=== PATIENT | female | born 1990 | race Caucasian/White ===

== ENCOUNTER 2017-02-28 17:20 | Emergency (ER) | payer OTHER ==
[~2017-02-28] VITALS: Ht 165.1 cm; Wt 150.0 kg
[2017-02-28 17:29] VITALS: BP 132/82; PULSE 113; RESP 16; TEMP 98.3; O2SAT 97
[2017-02-28] MEDS ORDERED: birth control PO (18:26)
[2017-02-28] MEDS ORDERED: TRIL600T PO (18:26)
[2017-02-28] MEDS ORDERED: PROT40TA PO (18:26)
[2017-02-28] MEDS ORDERED: VIST50CA PO (18:26)
[2017-02-28] MEDS ORDERED: CLON1 PO (18:26)
[2017-02-28] MEDS ORDERED: PRAZ2CAP PO (18:26)
[2017-02-28] MEDS ORDERED: TRAZ50TA12 PO (18:26)
[2017-02-28] MEDS ORDERED: PENI500T PO (18:47)
--- NOTE | 2017-02-28 18:47 | PD ---
HPI Chief Complaint: Anxiety Time Seen by Provider: 17:50 Travel History International Travel<30 days: No Contact w/Intl Traveler<30days: No Traveled to known affect area: No History of Present Illness HPI The patient was seen and examined in the presence of the nurse. At no point in time was I and the room without the nurse present. This patient comes to the emergency room with her mother. She has history of PTSD and anxiety. It's fairly challenging to actually elicited even a chief complaint. When I asked the patient a few questions she just ignores me. I asked her mother why she is here and she said she thought she needed a psychiatric evaluation. She is not suicidal. She denies auditory or visual hallucination. She reports compliance with her medications. She does have a medical history of frequent UTIs and would like her urinalysis rechecked. She denies alcohol or drug use. Denies overdose or overuse of medication. The patient seems quite angry and has frequent outbursts. She is very challenging to obtain history from. She also complains of dental pain in "all of her teeth". She does not go to a dentist symptoms severity is moderate. No alleviating factors. 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) Reported Meds & Prescriptions Reported Meds & Active Scripts Active Penicillin V Potassium 500 Mg Tab 500 Mg PO Q8H Reported Vistaril (Hydroxyzine Pamoate) 50 Mg Cap 50 Mg PO TID Prazosin (Prazosin HCl) 2 Mg Cap 4 Mg PO HS Trazodone (Trazodone HCl) 50 Mg Tab 200 Mg PO HS [ control] 1 Tab PO DAILY Klonopin (Clonazepam) 1 Mg Tab 1 Mg PO TID Protonix (Pantoprazole Sodium) 40 Mg Tab 40 Mg PO DAILY Trileptal (Oxcarbazepine) 600 Mg Tab 600 Mg PO BID Review of Systems General / Constitutional: No: Fever HENT: Positive: Dental Difficulties, No: Headaches Cardiovascular: No: Chest Pain or Discomfort Respiratory: No: Cough Psychiatric: Positive: Anxiety Physical Exam Narrative RESPIRATORY: Respiratory effort unlabored, no retractions or use of accessory muscles. Breath sounds are clear and symmetric. CARDIOVASCULAR: Regular rate and rhythm without murmur. Extremities showed no edema or varicosities. GASTROINTESTINAL: Abdomen soft, non-tender, morbidly obese, nondistended. Positive bowel sounds. No hepato-splenomegaly, or palpable masses. No guarding. SKIN: Focused skin assessment reveals no rash or ulcers. Skin is warm and dry. Palpation shows no induration or nodules. Data Data Last Documented VS Vital Signs Date Time Temp Pulse Resp B/P Pulse Ox O2 Delivery O2 Flow Rate FiO2 02/28/17 17:47 110 16 02/28/17 17:29 98.3 132/82 97 Orders Urinalysis - C+S If Indicated (02/28/17 18:07) Cath For Specimen (02/28/17 18:07) Ed Urine Pregnancytest Poc (02/28/17 18:07) Drug Screen, Random Urine (02/28/17 18:07) MDM Medical Decision Making Medical Screen Exam Complete: Yes Emergency Medical Condition: Yes Medical Record Reviewed: Yes Differential Diagnosis PTSD exacerbation, anxiety attack, UTI, dental cavity Narrative Course I have reviewed the patient's electronic medical record. This patient is very challenging to take care of. It seems like her mother brought her here but the patient didn't really want to come here. Psychiatrically, mother would like her to get a psych screen but brought her to a facility without psychiatric services. I think that she should take her daughter to the main ER to get psychiatric evaluation. It sounds like the daughter is going to be grudgingly agreeable to that but not overly excited about it. She really doesn't need Sheldon act criteria. She is angry and has occasional verbal outbursts but does not seem psychotic or suicidal. Prior to her being taken to the main for psych evaluation, I am attempting to address her medical concerns. He only complaints I can elicit from her our concern for UTI and dental pain. I've written her a prescription for penicillin and recommended dental follow-up regarding her dental pain. I'm ordering a urinalysis and we'll also include urine and urine drug screen. After urine has been evaluated over recommend mother take her to the psychiatric screening area of the main ER. We'll have the nurse call report so they know to expect her. Diagnosis Primary Impression: PTSD (post-traumatic stress disorder) Additional Impressions: Anxiety Pain, dental Additional Instructions: Recommending mother take her to the main ER for psychiatric screening Also follow up with primary care physician and dentist Penicillin prescribed for your teeth Med/Other Pt SpecificInfo: Prescription(s) given Scripts Penicillin V Potassium 500 Mg [id number] Mg PO Q8H #20 TAB Ref 0 Prov:Preston Castillo MD 02/28/17 Disposition: 01 DISCHARGE HOME Condition: Stable Preston Castillo MD February 28, 2017 18:47
[2017-02-28 19:08] VITALS: BP 165/92; PULSE 82; RESP 18; O2SAT 98
[2017-02-28 19:21] LABS: BLOOD, URINE NEG (NEG); GLUCOSE,URINE NEG (NEG); KETONE, URINE TRACE mg/dL (NEG); NITRITE,URINE NEG (NEG); PH, URINE 5.5 (5.0-8.5)
[2017-02-28 19:31] LABS: AMPHETAMINE, URINE NEG (NEG); BARBITURATES, URINE NEG (NEG)
[2017-02-28 19:32] LABS: COCAINE, URINE NEG (NEG)
[2017-02-28 19:42] LABS: URINE COLOR AMBER (YELLW/STRAW)
[2017-02-28 19:43] LABS: MUCUS URINE MOD /lpf (OCC); SQUAMOUS EPITHELIAL CELL URINE > 8 /hpf (0-5)
[2017-02-28 19:44] LABS: BACTERIA, URINE MOD /hpf; COMMENT (UR) CULTURE INDICATED; CULTURE IF INDICATED CULTURE INDICATED; HYALINE CAST, URINE 0-2 /lpf (RARE)
[2017-02-28] MEDS ORDERED: MACR100C2 PO (20:00)
--- NOTE | 2017-02-28 20:03 | PD ---
Physical Exam Time Seen by Provider: 19:[address] Castillo left this patient with me to check the urine and make a disposition , likely discharge. The mother would then take the patient to the [facility] for psychiatric screening. Data Data Last Documented VS Vital Signs Date Time Temp Pulse Resp B/P Pulse Ox O2 Delivery O2 Flow Rate FiO2 02/28/17 19:08 82 18 165/92 98 02/28/17 17:29 98.3 Orders Urinalysis - C+S If Indicated (02/28/17 18:07) Cath For Specimen (02/28/17 18:07) Ed Urine Pregnancytest Poc (02/28/17 18:07) Drug Screen, Random Urine (02/28/17 18:07) Urine Culture (02/28/17 18:50) Labs Laboratory Tests Test 02/28/17 18:50 Urine Color JENNIFER Urine Turbidity SLIGHT Urine pH 5.5 Urine Specific [place] 1.030 Urine Protein 30 mg/dL Urine Glucose (UA) NEG mg/dL Urine Ketones TRACE mg/dL Urine Occult Blood NEG Urine Nitrite NEG Urine Bilirubin NEG Urine Leukocyte Esterase SMALL Urine WBC 6-8 /hpf Urine Squamous Epithelial > 8 /hpf Cells Urine Amorphous Sediment MOD Urine Bacteria MOD /hpf Urine Hyaline Casts 0-2 /lpf Urine Fine Granular Casts 3-5 /lpf Urine Mucus MOD /lpf Microscopic Urinalysis Comment CULTURE INDICATED Urine Opiates Screen NEG Urine Barbiturates Screen NEG Urine Amphetamines Screen NEG Urine Benzodiazepines Screen NEG Urine Cocaine Screen NEG Urine Cannabinoids Screen POS MDM Medical Record Reviewed: Yes Supervised Visit with JUAN RAMON: Yes Interpretation(s) The urine shows slight turbidity, specific gravity of 1.030, trace ketones, 30 protein, small leukocyte esterase with 6-8 white cells and moderate bacteria and culture is indicated. The urinalysis shows shows granular cast indicative of pyelonephritis. Differential Diagnosis Anxiety, ADHD, oppositional disorder, urinary tract infection Narrative Course The patient appears to have a urinary tract infection and anxiety. The mother wants the child psychiatric screen, she should take the child to [facility] for psychiatric screening. There is no reason that any Sheldon act needs to be written at this time. The granular casts show that the patient likely has pyelonephritis. Diagnosis Primary Impression: PTSD (post-traumatic stress disorder) Additional Impressions: Anxiety Pain, dental Pyelonephritis Additional Instruction: Recommending mother take her to the main ER for psychiatric screening Also follow up with primary care physician and dentist Penicillin prescribed for your teeth Med/Other Pt SpecificInfo: Prescription(s) given Scripts Nitrofurantoin Monohydrate Macrocrystals (Macrobid)100 Mg [id number] Mg PO BID 10 Days Ref 0 Prov:Jason Hammond MD 02/28/17 Penicillin V Potassium 500 Mg [id number] Mg PO Q8H #20 TAB Ref 0 Prov:Preston Castillo MD 02/28/17 Disposition: 01 DISCHARGE HOME Condition: Stable Jason Hammond MD February 28, 2017 20:03
[2017-02-28 20:52] VITALS: BP 162/90
== END 2017-02-28 20:54 | disposition home or self-care (01) ==
LOC: PHED 17:20
DX: N12 Tubulo-interstitial nephritis, not specified as acute or chronic (principal); F43.10 Post-traumatic stress disorder, unspecified; F41.8 Other specified anxiety disorders; K08.89 Other specified disorders of teeth and supporting structures; B96.89 Other specified bacterial agents as the cause of diseases classified elsewhere; F31.9 Bipolar disorder, unspecified; F12.10 Cannabis abuse, uncomplicated
CPT/HCPCS: 80307; 81001; 84703; 87086; 99284

== ENCOUNTER 2017-08-21 05:16 | Emergency (ER) | payer OTHER ==
[~2017-08-21] VITALS: Ht 165.1 cm; Wt 159.0 kg
[~2017-08-21 05:16] MED LIST: CLON1 PO; MACR100C2 PO; PENI500T PO; PRAZ2CAP PO; PROT40TA PO; TRAZ50TA12 PO; TRIL600T PO; VIST50CA PO; birth control PO
[2017-08-21 05:26] VITALS: BP 153/106; PULSE 109; RESP 20; TEMP 98.5; O2SAT 98
[2017-08-21] MEDS ORDERED: PENI500T PO (05:58)
[2017-08-21] MEDS ORDERED: PANT40TA3 PO (05:58)
--- NOTE | 2017-08-21 05:58 | PD ---
HPI Chief Complaint: Oral / Dental Pain or Problem Time Seen by Provider: 05:54 Travel History International Travel<30 days: No Contact w/Intl Traveler<30days: No Traveled to known affect area: No History of Present Illness HPI 26-year-old female presents to the emergency department for complaint of recurrent dental pain. Patient states she has multiple dental caries and has very poor dentition. Patient states that she has been told the past 2 years that she needs to have dental extraction but cannot afford to do so. Symptoms began evening and progressively worsened. Patient now notes some swelling underneath the mandible near the tooth the right where she has had most of her dental pain. Patient is not diabetic. Patient's had no fever chills. Patient states she is now developing facial pain and ear pain associated with the dental pain. Patient denies any trauma or injury. Patient' s last period was at the end of July and has had unprotected intercourse and is no longer taking control pills. Patient is concerned that she may be but notes her suspicion is somewhat low. Patient denies other concerns or complaints. [facility] Past Medical History Narrative Medical Bipolar disorder, dental caries, UTI, marijuana use; nursing notes reviewed Bipolar Disorder: Yes Anxiety: Yes Depression: Yes Diminished Hearing: No GERD: Yes Genitourinary: Yes (chronic UTI's) Psychiatric: Yes Tetanus Vaccination: Unknown Influenza Vaccination: No ?: Unknown LMP: 08/01/17 Past Surgical History Cholecystectomy: Yes Social History Alcohol Use: No (denies) Tobacco Use: Yes Substance Use: Yes (smokes weed) Allergies-Medications (Allergen,Severity, Reaction): Coded Allergies: lamotrigine (Unverified Allergy, Unknown, sheree johnsons syndrome, ) Reported Meds & Prescriptions Reported Meds & Active Scripts Active Penicillin V Potassium 500 Mg Tab 500 Mg PO Q6H 7 Days Pantoprazole (Pantoprazole Sodium) 40 Mg Tab 40 Mg PO DAILY Reported Vistaril (Hydroxyzine Pamoate) 50 Mg Cap 50 Mg PO TID Prazosin (Prazosin HCl) 2 Mg Cap 4 Mg PO HS Trazodone (Trazodone HCl) 50 Mg Tab 200 Mg PO HS Protonix (Pantoprazole Sodium) 40 Mg Tab 40 Mg PO DAILY Trileptal (Oxcarbazepine) 600 Mg Tab 600 Mg PO BID Review of Systems Except as stated in HPI: all other systems reviewed are Neg General / Constitutional: No: Fever, Chills HENT: Positive: Dental Difficulties, Earache, No: Congestion Cardiovascular: No: Chest Pain or Discomfort Respiratory: No: Shortness of Breath Gastrointestinal: No: Abdominal Pain Musculoskeletal: No: Myalgias, Arthralgias Skin: No Rash Neurologic: No: Weakness Psychiatric: No: Anxiety Hematologic/Lymphatic: No: Lymph Node Enlargement Physical Exam Narrative GENERAL: Well-developed well-nourished obese female in no acute distress no respiratory distress SKIN: Warm and dry. HEAD: Normocephalic. EYES: No scleral icterus. No injection or drainage. ENT: Mucous membranes moist , extensive dental caries, gingival edema without fluctuance and gingivitis; tympanic membranes no redness dullness or loss of landmarks no perforation bilaterally. Mild soft tissue swelling at the level of of the right mandible body consistent with the #27 dentition with palpable tenderness and firmness induration nonfluctuant. NECK: Supple, trachea midline. No JVD or lymphadenopathy. CARDIOVASCULAR: Regular rate and rhythm without murmurs, gallops, or rubs. RESPIRATORY: Breath sounds equal bilaterally. No accessory muscle use. GASTROINTESTINAL: Abdomen soft, non-tender, nondistended. MUSCULOSKELETAL: No cyanosis, or edema. BACK: Nontender without obvious deformity. No CVA tenderness. Data Data Last Documented VS Vital Signs Date Time Temp Pulse Resp B/P (MAP) Pulse Ox O2 Delivery O2 Flow Rate FiO2 08/21/17 05:42 92 18 08/21/17 05:26 98.5 153/106 (122) 98 Orders Orders Ed Urine Pregnancytest Poc (08/21/17 05:54) Penicillin V Potassium (Veetids) (08/21/17 06:00) MDM Medical Decision Making Medical Screen Exam Complete: Yes Emergency Medical Condition: Yes Medical Record Reviewed: Yes Interpretation(s) poc hcg: negative Differential Diagnosis Dental pain, dental abscess, migratory dental abscess, excessive dental caries, gingivitis, medication refill Narrative Course Patient is here with dental pain is progressive worsened the past 24 hours with soft tissue swelling of the mandible that is consistent with the #27 dentition with extensive dental caries and gingivitis changes no gingival fluctuance but tenderness is noted to palpation. Patient given first dose of oral antibiotic. Patient also requesting refill of her PPI. Diagnosis Primary Impression: Dentalgia Additional Impressions: Dental abscess Medication refill Referrals: Dentist call for appointment Patient Instructions: General Instructions Additional Instructions: Follow-up with your primary care provider as planned in October Follow-up with dentist Med/Other Pt SpecificInfo: Prescription(s) given Scripts Penicillin V Potassium (Penicillin V Potassium) 500 Mg Tab 500 MG PO Q6H for Infection for 7 Days, #28 TAB 0 Refills Prov: Telma Khan MD 08/21/17 Pantoprazole (Pantoprazole) 40 Mg Tab 40 MG PO DAILY for Reflux, #30 TAB 0 Refills Prov: Telma Khan MD 08/21/17 Disposition: DISCHARGE HOME Condition: Stable Telma Khan MD Aug 21, 2017 05:58
[2017-08-21] MEDS ORDERED: PENICILLIN V POTASSIUM 500 MG TAB PO ONE (06:00)
== END 2017-08-21 06:14 | disposition home or self-care (01) ==
LOC: PHED 05:16
DX: K08.89 Other specified disorders of teeth and supporting structures (principal); K04.7 Periapical abscess without sinus; K02.9 Dental caries, unspecified; Z76.0 Encounter for issue of repeat prescription; Z72.0 Tobacco use; Z79.899 Other long term (current) drug therapy
CPT/HCPCS: 84703; 99284